=== PATIENT | female | born 1940 | race Caucasian/White ===

== ENCOUNTER 2018-01-01 00:49 | Inpatient (IN) | payer MEDICARE, OTHER ==
[~2018-01-01] VITALS: Ht 167.6 cm; Wt 50.3 kg
--- NOTE | 2018-01-01 01:06 | NUR ---
PT TO ER BED 5. PT BIBRA FROM HOME C/O ABD PAIN X 1 DAY/NO BOWEL MOVEMENT IN 2 DAYS. PER PARAMEDICS PT CONFUSED X 1 DAY. PT PLACED IN GOWN AND ON REHAB OFFICE COORDINATOR. VSS/RESP EVEN UNLABORED/NAD NOTED/SKIN WARM AND DRY/DENIES N-V-D/ AFEBRILE/AOX2. AWAITING MD DIAZ.
--- NOTE | 2018-01-01 01:43 | NUR ---
AT BEDSIDE FOR EVAL.
--- NOTE | 2018-01-01 02:18 | NUR ---
EMT AT BEDSIDE FOR EKG.
--- NOTE | 2018-01-01 02:23 | NUR ---
LAB AT BEDSIDE FOR DRAW.
--- NOTE | 2018-01-01 02:41 | NUR ---
PT TO CT VIA STRETCHER, VSS.
[2018-01-01 02:46] LABS: BASOPHILS % (AUTO) 0.2 % (0.0-2.0); EOSINOPHILS # (AUTO) 0.1 /CMM (0.0-0.7); EOSINOPHILS % (AUTO) 0.4 % (0.0-6.0); HEMATOCRIT 40 % (33-45); HEMOGLOBIN 13.6 g/dL (11.5-14.8); LYMPHOCYTES # (AUTO) 1.7 /CMM (0.8-4.8); LYMPHOCYTES % (AUTO) 9.3 % (20.0-44.0); MEAN CORPUSCULAR HEMOGLOBIN 31 PG (26.0-33.0); MEAN CORPUSCULAR HGB CONC 34 g/dl (31.0-36.0); MEAN CORPUSCULAR VOLUME 90 fL (82-100); MONOCYTES # (AUTO) 1.3 /CMM (0.1-1.30); MONOCYTES % (AUTO) 7.2 % (2.0-12.0); NEUTROPHILS # (AUTO) 14.8 /CMM (1.8-8.9); NEUTROPHILS % (AUTO) 82.9 % (43.0-81.0); PLATELET COUNT (AUTO) 743 /CMM (150-450); RED BLOOD CELL COUNT(AUTO) 4.42 MIL/uL (4.0-5.2); WHITE BLOOD COUNT (AUTO) 17.8 K/uL (4.3-11.0)
--- NOTE | 2018-01-01 02:51 | NUR ---
PT BACK FROM CT.
--- NOTE | 2018-01-01 02:52 | NUR ---
XRAY AT BEDSIDE FOR CXR.
--- NOTE | 2018-01-01 02:53 | NUR ---
[facility] BED 117-2
[2018-01-01] MEDS ORDERED: PROP50TA3 PO (02:56)
[2018-01-01] MEDS ORDERED: VERA240C2 PO (02:57)
[2018-01-01] MEDS ORDERED: HYDR25TA4 PO (02:58)
[2018-01-01] MEDS ORDERED: SIMV10TA6 PO (02:59)
[2018-01-01 03:08] LABS: TROPONIN I < 0.017 ng/mL (0.00-0.056)
[2018-01-01 03:09] LABS: ALANINE AMINOTRANSFERASE 41 U/L (12-78); ALBUMIN 3.3 g/dL (3.4-5.0); ALKALINE PHOSPHATASE 87 U/L (46-116); ASPARTATE AMINOTRANSFERASE 21 U/L (15-37); BILIRUBIN,DIRECT 0.1 mg/dL (0.0-0.2); BILIRUBIN,TOTAL 0.4 mg/dL (0.2-1.0); CARBON DIOXIDE 28 mmol/L (21-32); CHLORIDE 84 mmol/L (98-107); CREATININE 0.5 mg/dL (0.6-1.3); GLUCOSE 111 mg/dL (74-106); SODIUM SERUM 122 mmol/L (136-145); TOTAL PROTEIN, SERUM 7.4 g/dL (6.4-8.2); UREA NITROGEN, BLOOD 6 mg/dL (7-18)
[2018-01-01 03:13] LABS: POTASSIUM 2.7 mmol/L (3.5-5.1)
--- NOTE | 2018-01-01 03:15 | NUR ---
MADE AWARE OF PT POTASSIUM OF 2.7. NO NEW ORDERS RECEIVED AT THIS TIME.
[2018-01-01 03:28] LABS: INR 1.04 (0.87-1.13)
[2018-01-01] MEDS ORDERED: POTASSIUM CHLORIDE 20 MEQ TAB.PRT.SR PO ONE ×2 (03:30)
[2018-01-01] MEDS ORDERED: POTASSIUM CHLORIDE 10 MEQ/50 ML PREMIXED IVPB FOR PERIPHERAL LINE IV ONE ×3 (03:30→07:30)
[2018-01-01 03:40] LABS: BAND % (MANUAL) 2 % (0.0-5.0); EOSINOPHILS % (MANUAL) 2 % (0-4); LYMPHOCYTES % (MANUAL) 9 % (16-48); MONOCYTES % (MANUAL) 10 % (0-11.0); NEUTROPHILS % (MANUAL) 77 (42-76)
[2018-01-01 03:59] LABS: APPEARANCE,URINE CLEAR (CLEAR); BILIRUBIN,URINE NEGATIVE (NEGATIVE); BLOOD, URINE NEGATIVE Ery/uL (NEGATIVE); COLOR,URINE YELLOW (YELLOW); KETONES,URINE NEGATIVE (NEGATIVE); LEUKOCYTE ESTERASE ,URINE NEGATIVE (NEGATIVE); NITRITE, URINE NEGATIVE (NEGATIVE); PH,URINE 7.5 (5.0-8.0); PROTEIN,URINE NEGATIVE (NEGATIVE); UGLUCOSE NEGATIVE (NEGATIVE); UROBILINOGEN,URINE 0.2 EU/dL (0.2)
--- NOTE | 2018-01-01 04:31 | NUR ---
CALLED [facility] TO EXPEDITE CT REPORT
[2018-01-01] MEDS ORDERED: LEVOFLOXACIN 750 MG /D5W 150ML 750 MG in PREMIX 1 EA IV STA (04:34)
[2018-01-01] MEDS ORDERED: LEVOFLOXACIN 750 MG /D5W 150ML 150 ML IV ONE (05:10)
--- NOTE | 2018-01-01 05:11 | NUR ---
20MEQ OF POTASSIUM IV ENDORSED TO [facility] FOR ADMIN. ORDER SIGNED BY DR NELSON.
--- NOTE | 2018-01-01 05:27 | NUR ---
REPORT GIVEN TO JEFFY MAIN IN [facility] FOR [facility].
--- NOTE | 2018-01-01 06:01 | NUR ---
REPORT GIVEN TO JEFFY FRAUSTO FOR [facility].
--- NOTE | 2018-01-01 06:15 | NUR ---
TELE/RN NOTES RECEIVED PT. FROM ER VIA [facility]. PT. IS AWAKE, ALERT AND ORIENTED X2. BREATHING EVEN AND UNLABORED ON ROOM AIR. NO SOB, RESPIRATORY DISTRESS OR COMPLAINTS OF PAIN NOTED AT THIS TIME. ORIENTED PT. TO ROOM. PLACED EXTERNAL DISPUTE COORDINATOR ON PT. CURRENT RHYTHM = SINUS RHYTHM HR 70. PT. WITH RIGHT AC 20 GAUGE PERIPHERAL IV PRESENT, PATENT AND INTACT. BED LOCKED AND IN LOWEST POSITION, SIDE RAILS UP X3, BED ALARM ON, CALL LIGHT WITHIN REACH, WILL CONTINUE TO MONITOR.
[2018-01-01 06:20] VITALS: BP 146/69
--- NOTE | 2018-01-01 06:25 | NUR ---
PT TRANSPORTED TO [facility] 314-1 VIA STRETCHER ON TRAIL CONSTRUCTION WORKER WITH RN PER ACLS PROTOCOL.
[2018-01-01] MEDS ORDERED: ACETAMINOPHEN 325 MG TABLET PO PRN (07:30)
--- NOTE | 2018-01-01 07:30 | NUR ---
TELE/RN OPENING NOTE RECEIVED PATIENT IN BED. ALERT AND ORIENTED X2. REDIRECTION AND REORIENTATION PROVIDED. DENIES SOB, PAIN AT THIS TIME. RESPIRATION REGULAR AND UNLABORED. PATIENT ON EXTERNAL CARDIAL MONITOR AND NOTED SR AT 74. RAC G 20 PATENT. BED LOW AND LOCKED. SIDE RAILS UP X3. CALL LIGHT WITHIN REACH. WILL CONTINUE TO MONITOR.
[2018-01-01 07:57] LABS: THYROID STIMULATING HORMONE 0.362 uIU/mL (0.358-3.74)
[2018-01-01 08:00] VITALS: BP_SYST 123; BP_SYST 125; BP_DIAS 59; BP_DIAS 66
[2018-01-01] MEDS: POTASSIUM CL. PREMIX PERIPHER. 50 ML IV SCH ×2 (09:38→11:35)
[2018-01-01] MEDS ORDERED: LEVOFLOXACIN 500 MG /D5W 100ML 500 MG in PREMIX 1 EA IV ONE (11:30)
[2018-01-01 11:39] LABS: BASOPHILS % (AUTO) 0.2 % (0.0-2.0); EOSINOPHILS % (AUTO) 0.2 % (0.0-6.0); HEMATOCRIT 38 % (33-45); HEMOGLOBIN 12.9 g/dL (11.5-14.8); LYMPHOCYTES % (AUTO) 7.9 % (20.0-44.0); MEAN CORPUSCULAR HEMOGLOBIN 31 PG (26.0-33.0); MEAN CORPUSCULAR HGB CONC 34 g/dl (31.0-36.0); MEAN CORPUSCULAR VOLUME 89 fL (82-100); MONOCYTES % (AUTO) 7.8 % (2.0-12.0); NEUTROPHILS # (AUTO) 10.5 /CMM (1.8-8.9); NEUTROPHILS % (AUTO) 83.9 % (43.0-81.0); PLATELET COUNT (AUTO) 804 /CMM (150-450); RED BLOOD CELL COUNT(AUTO) 4.22 MIL/uL (4.0-5.2); WHITE BLOOD COUNT (AUTO) 12.5 K/uL (4.3-11.0)
[2018-01-01 11:53] LABS: CALCIUM, SERUM 8.8 mg/dL (8.5-10.1); CARBON DIOXIDE 27 mmol/L (21-32); CHLORIDE 88 mmol/L (98-107); CREATININE 0.6 mg/dL (0.6-1.3); GLUCOSE 109 mg/dL (74-106); MAGNESIUM 2.1 mg/dL (1.8-2.4); POTASSIUM 3.6 mmol/L (3.5-5.1); SODIUM SERUM 125 mmol/L (136-145); UREA NITROGEN, BLOOD 6 mg/dL (7-18)
[2018-01-01] MEDS: Potassium Chloride 20 MEQ in IV NS 0.9% 1,000 ML IV PRN (15:35)
[2018-01-01 16:00] VITALS: BP_SYST 131; BP_SYST 162; BP_DIAS 58; BP_DIAS 89
--- NOTE | 2018-01-01 19:12 | NUR ---
MS/RN CLOSING NOTE PATIENT ALERT AND ORIENTED X2. RESPIRATION REGULAR AND UNLABORED. DENIES SOB, PAIN AT THIS TIME IN NO APPARENT DISTRESS. GOOD AND GENTLE SKIN CARE RENDERED. VERBAL CUES PROVIDED TO KEEP SAFETY AWARENESS HIGH. R HAND G 24 PATENT AND IV INFUSING WITH NO S/S INFILTRATION. BED LOW AND LOCKED. SIDE RAILS UP X3. CALL LIGHT WITHIN REACH. WILL ENDORSE TO NIGH SHIFT.
[2018-01-01 20:00] VITALS: BP 136/79
--- NOTE | 2018-01-01 21:01 | NUR ---
RN NOTES PT IS TRYING TO GET OUT OF BED AND SCREAMING- SPOKE TO DR. WEEKS AND GOT A SITTER ORDER, ORDER NOTED AND CARRIED OUT
--- NOTE | 2018-01-01 21:30 | NUR ---
Lying in bed A/O 2 confused trying to pull out iv with 1-1. IV N.S. 0.9% with 20 K helga infusing to left wrist area no edema or s/s of infection noted. fall risk and bed alarm on 11-15 @ bedside for safety. Denies of any distress.
[2018-01-01 23:19] VITALS: BP 136/79
[2018-01-02 00:38] VITALS: BP 136/79
[2018-01-02 04:01] VITALS: BP 136/79
[2018-01-02 07:08] LABS: BASOPHILS % (AUTO) 0.4 % (0.0-2.0); EOSINOPHILS % (AUTO) 0.3 % (0.0-6.0); HEMATOCRIT 40 % (33-45); HEMOGLOBIN 13.4 g/dL (11.5-14.8); LYMPHOCYTES # (AUTO) 1.4 /CMM (0.8-4.8); LYMPHOCYTES % (AUTO) 15.7 % (20.0-44.0); MEAN CORPUSCULAR HEMOGLOBIN 31 PG (26.0-33.0); MEAN CORPUSCULAR HGB CONC 34 g/dl (31.0-36.0); MEAN CORPUSCULAR VOLUME 90 fL (82-100); MONOCYTES # (AUTO) 0.8 /CMM (0.1-1.30); MONOCYTES % (AUTO) 9.2 % (2.0-12.0); NEUTROPHILS # (AUTO) 6.8 /CMM (1.8-8.9); NEUTROPHILS % (AUTO) 74.4 % (43.0-81.0); PLATELET COUNT (AUTO) 839 /CMM (150-450); RDW COEFFICIENT OF VARIATION 14.3 (11.5-15.0); WHITE BLOOD COUNT (AUTO) 9.2 K/uL (4.3-11.0)
--- NOTE | 2018-01-02 07:11 | NUR ---
Closing Note: Lying in bed resting comfortably iv NS 0.9% with 20K infusing 75cchr without difficulty. 1-1 remain to be at bedside for pt pulling out Iv and getting out of bed. Deniesof any distress. Siderail up Call light within reach.
[2018-01-02 07:28] LABS: CALCIUM, SERUM 9.3 mg/dL (8.5-10.1); CARBON DIOXIDE 29 mmol/L (21-32); CHLORIDE 99 mmol/L (98-107); CREATININE 0.8 mg/dL (0.6-1.3); GLUCOSE 109 mg/dL (74-106); MAGNESIUM 2.4 mg/dL (1.8-2.4); POTASSIUM 4.2 mmol/L (3.5-5.1); SODIUM SERUM 134 mmol/L (136-145); UREA NITROGEN, BLOOD 10 mg/dL (7-18)
--- NOTE | 2018-01-02 07:32 | NUR ---
MS RN: CLOSING NOTE RECEIVED PT A/OX2. CONFUSED. HAD 1:1 SITTER. ORDERED 1:1 FOR DAY TIME. NO SITTER AVAILABLE. BED ALARM ON. BRP WITH ASSIST. ON REGULAR DIET. L WRIST #22 RUNNING NS WITH 20MEWQ AT 75ML/HR. SITE CLEAR AND PATENT. NO PAIN NOTED. NO SOB NOTED. NO DISTRESS NOTED. RESTING COMFORTABLY IN BED. CALL LIGHT WITHIN REACH.
[2018-01-02] MEDS: Potassium Chloride 20 MEQ in IV NS 0.9% 1,000 ML IV PRN (07:51)
[2018-01-02 08:00] VITALS: BP 134/69
[2018-01-02] MEDS ORDERED: LEVOFLOXACIN 250 MG /D5W 50 ML 250 MG in PREMIX 1 EA IV SCH (08:00)
[2018-01-02] MEDS ORDERED: METRONIDAZOLE 500 MG TABLET PO SCH ×2 (10:30→10:31)
--- NOTE | 2018-01-02 13:22 | NUR ---
PER MD WEEKS ORDER TO PLACE ORDER FOR D/C AFTER ECHO AND CAROTID DOPPLER RESULTS ARE CLEAR. CONSULTED MD WEEKS. ORDER PLACED.
--- NOTE | 2018-01-02 13:53 | NUR ---
MS RN: DISCHARGE NOTE PT D/C HOME WITH SELF CARE. LIVED WITH SON AND GRANDSON. TOOK ALL MEDICATIONS ON TIME. NO ADVERSE REACTIONS NOTED. NO PAIN NOTED. NO SOB NOTED. NO DISTRESS NOTED. A/OX2. SLIGHTLY CONFUSED. BRP WITH ASSIST. SKIN INTACT. L WRIST #22 IV SITE D/C. SITE CLEAR. NO BLEEDING OR REDNESS NOTED. ALL DISCHARGE INFORMATION PROVIDED. NEW PRESCRIPTIONS PROVIDED. ALL DISCHARGE INFORMATION SIGNED AND COPIES GIVEN TO SON. ALL BELONGINGS ACCOUNTED FOR. LEFT VIA WHEELCHAIR WITH SON AND GRANDSON VIA PRIVATE CAR.
== END 2018-01-02 13:35 | disposition home or self-care (01) | DRG 391 ==
LOC: ER 00:51 → TELE1 03:07 → TELE-TD 04:01 → TELE 06:34 → MED 10:15
PROVIDERS: ADMIT Internal Medicine; ATTEND Internal Medicine
DX: K57.32 Diverticulitis of large intestine without perforation or abscess without bleeding (principal); G93.41 Metabolic encephalopathy; E86.0 Dehydration; I65.23 Occlusion and stenosis of bilateral carotid arteries; I11.9 Hypertensive heart disease without heart failure; E87.1 Hypo-osmolality and hyponatremia; E05.90 Thyrotoxicosis, unspecified without thyrotoxic crisis or storm; E87.6 Hypokalemia; Z85.3 Personal history of malignant neoplasm of breast; Z79.899 Other long term (current) drug therapy; Z90.49 Acquired absence of other specified parts of digestive tract; F17.210 Nicotine dependence, cigarettes, uncomplicated; N20.0 Calculus of kidney; K43.2 Incisional hernia without obstruction or gangrene
CPT/HCPCS: 36415; 70450-TC; 71045-TC; 80048-TC; 80061-TC; 80076-TC; 81000-TC; 82962-TC; 83735-TC; 84443-TC; 84484-TC; 85025-TC; 85730-TC; 87040-TC; 87081-TC; 87086-TC; 93307-TC; 93880-TC; A4216; A4606; G0480; J1956; J3480; J7030; Z7610